=== PATIENT | female | born 1960 | race African-American/Black ===

== ENCOUNTER 2018-12-10 03:26 | Inpatient (IN) | payer MEDICAID ==
[~2018-12-10] VITALS: Ht 160 cm; Wt 65.8 kg
[2018-12-10 06:13] LABS: BASOPHILS % 0.5 % (0.0-2.0); EOSINOPHILS % 0.8 % (0.0-5.0); HEMATOCRIT. 29.8 % (36.0-48.0); HEMOGLOBIN. 10.2 g/dL (12.0-16.0); LYMPHOCYTES % 14.3 % (20.0-50.0); MEAN CORPUSCULAR HEMOGLOBIN 32.8 pg (28.0-32.0); MONOCYTES % 12.2 % (2.0-8.0); NEUTROPHILS % 72.2 % (40.0-76.0); PLATELET 79 x1000/uL (130-400); RED BLOOD CELL COUNT 3.11 mill/uL (4.2-5.4); RED CELL DISTRIBUTION WIDTH 17.9 % (11.6-14.6)
[2018-12-10 06:20] LABS: CHLORIDE 125 mEq/L (98-107)
[2018-12-10 06:23] LABS: INR 1.4; PROTHROMBIN TIME 14.5 sec (9.6-11.0)
[2018-12-10] MEDS ORDERED: LACTULOSE 20G/30ML UDC PO ONE (07:00)
[2018-12-10] MEDS ORDERED: LIDOCAINE HCL 4% (40MG/ML) SOLN 50ML TOP ONE (08:15)
[2018-12-10] MEDS ORDERED: VISCOUS LIDOCAINE 2% 15 ML UDC MM PRN (08:15)
[2018-12-10] MEDS ORDERED: LORAZEPAM 2MG/ML CPJ IV ONE (08:30)
[2018-12-10] MEDS ORDERED: LORAZEPAM 2MG/ML CPJ ONE (08:30)
[2018-12-10] MEDS ORDERED: KETOROLAC 15MG/ML VIAL IV PRN (10:30)
[2018-12-10] MEDS ORDERED: CLONIDINE 0.1MG TABLET PO PRN (10:30)
[2018-12-10] MEDS ORDERED: IPRATROPIUM/ALBUTEROL 0.5-3(2.5)MG/3ML NEB INH PRN (10:30)
[2018-12-10] MEDS ORDERED: NITROGLYCERIN 0.4MG TABLET SL SL PRN (10:30)
[2018-12-10] MEDS ORDERED: MAGNESIUM/ALUMINUM HYDROXIDE/SIMETHICONE 30ML UDC PO PRN (10:30)
[2018-12-10] MEDS ORDERED: ONDANSETRON HCL 4MG/2ML INJ IV PRN (10:30)
[2018-12-10] MEDS ORDERED: GUAIFENESIN 200MG/10ML SUGAR FREE UDC PO PRN (10:30)
[2018-12-10] MEDS ORDERED: ACETAMINOPHEN 325MG TABLET PO PRN (10:30)
[2018-12-10 11:30] VITALS: BP 151/71
[2018-12-10 11:43] LABS: HEPATITIS B SURFACE ANTIGEN NEGATIVE
[2018-12-10 12:00] VITALS: BP 162/50
[2018-12-10 12:13] LABS: HEPATITIS A AB IGM NEGATIVE (NEGATIVE)
[2018-12-10] MEDS ORDERED: CEFTRIAXONE 1 G PREMIX 50 ML IV SCH (13:00)
[2018-12-10] MEDS: RIFAXIMIN 550 MG TABLET PO SCH ×2 (13:53→21:18)
[2018-12-10] MEDS: LACTULOSE 20G/30ML UDC PO SCH ×3 (13:53→21:18)
[2018-12-10] MEDS: FAMOTIDINE 20MG TABLET PO SCH (13:54)
[2018-12-10 16:00] VITALS: BP 140/57
[2018-12-10] MEDS: NYSTATIN POWDER 15GM TOP SCH (16:13)
[2018-12-10 20:00] VITALS: BP 151/66
[2018-12-10] MEDS ORDERED: FAMOTIDINE 20MG TABLET PO SCH (21:00)
[2018-12-10] MEDS: PROPRANOLOL HCL 10MG TABLET PO SCH (22:50)
[2018-12-11] VITALS: BP 159/49
[2018-12-11] MEDS: LACTULOSE 20G/30ML UDC PO SCH ×6 (00:10→21:54)
[2018-12-11 04:00] VITALS: BP 141/52
[2018-12-11 08:00] VITALS: BP 151/61
[2018-12-11] MEDS: RIFAXIMIN 550 MG TABLET PO SCH ×2 (09:00→21:54)
[2018-12-11 09:28] LABS: CHLORIDE 132 mEq/L (98-107)
[2018-12-11] MEDS ORDERED: SODIUM BICARBONATE 4% (2.4MEQ) 5ML VIAL IV ONE (09:45)
[2018-12-11] MEDS ORDERED: LIDOCAINE HCL 1% 20ML VIAL (Pyxis) INJ ONE (09:45)
[2018-12-11 11:19] VITALS: BP 133/31
[2018-12-11] MEDS ORDERED: RIFAXIMIN 550 MG TABLET PO NR (11:51)
[2018-12-11] MEDS: FAMOTIDINE 20MG TABLET PO SCH (11:57)
[2018-12-11] MEDS: PROPRANOLOL HCL 10MG TABLET PO SCH ×2 (11:57→21:54)
[2018-12-11] MEDS: CEFTRIAXONE 1 G PREMIX 50 ML IV SCH (13:41)
[2018-12-11] MEDS: NYSTATIN POWDER 15GM TOP SCH ×2 (13:47→16:21)
[2018-12-11 15:37] VITALS: BP 148/42
[2018-12-11 20:00] VITALS: BP 162/38
[2018-12-12] VITALS (7 sets, daily range): BP systolic 121–174; BP diastolic 33–78
[2018-12-12] MEDS: LACTULOSE 20G/30ML UDC PO SCH ×6 (01:21→21:45)
[2018-12-12] MEDS: RIFAXIMIN 550 MG TABLET PO SCH ×2 (09:00→21:44)
[2018-12-12] MEDS: PROPRANOLOL HCL 10MG TABLET PO SCH ×2 (09:04→21:44)
[2018-12-12] MEDS: FAMOTIDINE 20MG TABLET PO SCH (09:04)
[2018-12-12] MEDS: NYSTATIN POWDER 15GM TOP SCH ×2 (09:05→19:11)
[2018-12-12 10:08] LABS: CHLORIDE 132 mEq/L (98-107)
[2018-12-12] MEDS: CEFTRIAXONE 1 G PREMIX 50 ML IV SCH (14:30)
[2018-12-13] MEDS: LACTULOSE 20G/30ML UDC PO SCH ×3 (07:04→08:59)
[2018-12-13 08:00] VITALS: BP 134/31
[2018-12-13] MEDS: PROPRANOLOL HCL 10MG TABLET PO SCH (09:02)
[2018-12-13] MEDS: RIFAXIMIN 550 MG TABLET PO SCH (09:02)
[2018-12-13] MEDS: FAMOTIDINE 20MG TABLET PO SCH (09:02)
[2018-12-13] MEDS: NYSTATIN POWDER 15GM TOP SCH (09:02)
[2018-12-13 11:25] LABS: CHLORIDE 125 mEq/L (98-107)
[2018-12-13 12:00] VITALS: BP 119/23
[2018-12-13 13:43] VITALS: BP 119/43
== END 2018-12-13 14:02 | disposition home or self-care (01) | DRG 280 ==
LOC: ER 04:41 → 6EST 06:29 → EDBD 06:29 → ENRESERV 08:21 → 6WST 17:13
PROVIDERS: ADMIT Internal Medicine; ATTEND Internal Medicine
PROC: 0W9G3ZZ Drainage of Peritoneal Cavity, Percutaneous Approach (ICD-10-PCS; principal; 2018-12-11)
DX: K70.40 Alcoholic hepatic failure without coma (principal); K70.31 Alcoholic cirrhosis of liver with ascites; N17.0 Acute kidney failure with tubular necrosis; K76.7 Hepatorenal syndrome; E43 Unspecified severe protein-calorie malnutrition; L89.159 Pressure ulcer of sacral region, unspecified stage; L89.319 Pressure ulcer of right buttock, unspecified stage; D68.9 Coagulation defect, unspecified; L89.329 Pressure ulcer of left buttock, unspecified stage; E83.51 Hypocalcemia; E87.0 Hyperosmolality and hypernatremia; D69.6 Thrombocytopenia, unspecified; D63.8 Anemia in other chronic diseases classified elsewhere; E87.2 Acidosis; F10.10 Alcohol abuse, uncomplicated; F03.90 Unspecified dementia, unspecified severity, without behavioral disturbance, psychotic disturbance, mood disturbance, and anxiety; J45.909 Unspecified asthma, uncomplicated; B19.20 Unspecified viral hepatitis C without hepatic coma; Z68.25 Body mass index [BMI] 25.0-25.9, adult; Z71.41 Alcohol abuse counseling and surveillance of alcoholic
CPT/HCPCS: 36415; 49083; 71045; 80076; 82140; 82248; 83036; 83615; 84134; 86705; 86709; 86803; 87340; 93970; 96374; 99285; J0696; J2060; J3490